=== PATIENT | male | born 1950 | race Caucasian/White ===

== ENCOUNTER → 2024-04-04 15:09 | Outpatient (REF) | payer OTHER, SELFPAY | LOC: DHSLP 15:09 | PROVIDERS: ATTENDING PHYSICIAN Internal Medicine Cardiovascular Disease; FAMILY PHYSICIAN Family Medicine | DX: G47.33 Obstructive sleep apnea (adult) (pediatric) (principal) | CPT/HCPCS: 95800 ==

== ENCOUNTER → 2024-05-16 09:00 | Day surgery (SDC) | payer OTHER, SELFPAY ==
[2024-05-16 10:14] VITALS: BMI 33.9
[2024-05-16 10:46] LABS: % Basophils 0.9 % (0-2); % Eosinophils 3.1 % (0-6); % Immature Granulocytes 0.5 % (0-0.5); % Lymphocytes 48.2 % (20.5-51.1); % Monocytes 8.9 % (1.7-9.3); % Neutrophils 38.4 % (42.2-75.2); Absolute Basophils 0.1 10^3/uL (0-0.2); Absolute Eosinophils 0.2 10^3/uL (0-0.7); Absolute Lymphocytes 3.2 10^3/uL (1.2-3.4); Absolute Monocytes 0.6 10^3/uL (0.1-0.6); Absolute Neutrophils 2.5 10^3/uL (1.4-6.5); Hematocrit 37.3 % (39.0-52.0); Hemoglobin 12.7 g/dL (13.0-18.0); Mean Corpuscular Hgb 34.5 pg (27.0-31.0); Mean Corpuscular Volume 101.4 fL (80.0-94.0); Mean Platelet Volume 10.5 fL (7.4-10.4); Nucleated Red Blood Cells % 0 % (-); Platelet Count 184 10^3/uL (130-400); Red Blood Cell Count 3.68 10^6/uL (4.70-6.10); Red Cell Dist. Width 12.3 % (11.5-14.5); White Blood Cell Count 6.6 10^3/uL (4.8-10.8)
[2024-05-16 11:00] LABS: INR 1.09; PT 14.7 Sec (11.4-14.6)
[2024-05-16 11:02] LABS: ALT (SGPT) 21 U/L (0-50); AST (SGOT) 24 U/L (17-59); Albumin 4.7 g/dl (3.5-5.0); Alkaline Phosphatase 61 U/L (38-126); Blood Urea Nitrogen 24 mg/dl (9-20); Calcium 9.4 mg/dl (8.4-10.2); Carbon Dioxide 31 mmol/L (22-30); Chloride 103 mmol/L (98-107); Estimated Creatinine Clearance 70 ml/min; Glucose 94 mg/dl (70-99); Magnesium 2.1 mg/dl (1.6-2.3); Potassium 4.5 mmol/L (3.5-5.1); Sodium 141 mmol/L (135-145); Total Bilirubin 0.4 mg/dl (0.2-1.3); Total Protein 6.6 g/dl (6.3-8.2); eGFR > 60.00
--- NOTE | 2024-05-17 08:51 | W.PN.UPDATE ---
Update Note
Progress Note Update
Chest CT incidental findings:
1. Single, individual left and right superior and inferior pulmonary veins.
2. 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 No significant internal complexity that would be highly suggestive of a liposarcoma. Recommend direct comparison with previous outside imaging of the chest if
available.
3. 2.2 cm spiculated pulmonary nodule in the anterior right upper lobe. Recommend a follow-up PET/CT versus soft tissue sampling.
-faxed to Dr. Alfa Castelan and spoke to nurse Degroot who left message as well.
-spoke to .
== END ==
LOC: SDSPAT 09:00
PROVIDERS: ATTENDING PHYSICIAN Internal Medicine Cardiovascular Disease; FAMILY PHYSICIAN Family Medicine; OTHER PHYSICIAN Internal Medicine Cardiovascular Disease
DX: Z01.810 Encounter for preprocedural cardiovascular examination (principal); Z01.812 Encounter for preprocedural laboratory examination; Z01.818 Encounter for other preprocedural examination; I48.0 Paroxysmal atrial fibrillation; I10 Essential (primary) hypertension; E78.5 Hyperlipidemia, unspecified; K21.9 Gastro-esophageal reflux disease without esophagitis; E66.9 Obesity, unspecified; Z68.33 Body mass index [BMI] 33.0-33.9, adult; R91.1 Solitary pulmonary nodule; Z87.891 Personal history of nicotine dependence; G47.33 Obstructive sleep apnea (adult) (pediatric)
CPT/HCPCS: 93005; 36415; 75572; 80053; 83735; 85025; 85610; 86850; 86900; 86901; Q9967

== ENCOUNTER 2024-10-17 06:53 | Day surgery (SDC) | payer OTHER, SELFPAY ==
[2024-10-17] VITALS (12 sets, daily range): BP systolic 155–217; BP diastolic 71–104
[2024-10-17 08:15] LABS: Blood Urea Nitrogen 20 mg/dl (9-20); Calcium 9.6 mg/dl (8.4-10.2); Carbon Dioxide 27 mmol/L (22-30); Chloride 109 mmol/L (98-107); Estimated Creatinine Clearance 80 ml/min; Glucose 94 mg/dl (70-99); Potassium 4.8 mmol/L (3.5-5.1); Sodium 143 mmol/L (135-145); eGFR > 60.00
[2024-10-17 08:32] LABS: Hemoglobin 12.5 g/dL (13.0-18.0); Mean Corp Hgb Conc. 33.8 g/dL (33.0-37.0); Mean Corpuscular Hgb 32.8 pg (27.0-31.0); Mean Corpuscular Volume 97.1 fL (80.0-94.0); Platelet Count 181 10^3/uL (130-400); Red Blood Cell Count 3.81 10^6/uL (4.70-6.10); White Blood Cell Count 5.2 10^3/uL (4.8-10.8)
[2024-10-17] MEDS: TYLENOL 1000 MG PO (10:18)
--- NOTE | 2024-10-17 10:46 | ITS.CL.ABL ---
Therapist Radiation - Ablation
Ablation
Procedure Report:
Primary Brake Operator Helper: Ye Penaloza MD
Procedure Date: 10/17/2024
Patient History:
Patient is a pleasant 74-year-old male with a past medical history significant for hypertension, smoking, dyslipidemia, symptomatic paroxysmal atrial fibrillation, right lung mass status post resection..
See H&P for complete details.
Indication:
Symptomatic paroxysmal atrial fibrillation
Arrhythmia Specific History:
Prior Medical Therapies for Rate and Rhythm Control:
X Beta-opal
[ ] Calcium channel-opal
X Amiodarone
[ ] Dronederone
[ ] Sotalol
[ ] Flecainide
[ ] Dofetilide
[ ] Options limited by bradycardia
[ ] Options limited by comorbid renal disease
Prior Procedural Therapies for AF/AFL:
[ ] Cardioversion
[ ] Pulmonary Vein Isolation
[ ] Posterior Wall Isolation
[ ] Additional lines (Specify)
[ ] Surgical Mcallister-MAZE or PVI (Specify)
Procedure Performed:
X AF ablation procedure (70080) -- includes LA/CS pacing, trans-septal, 3D mapping, + ICE
[ ] +IV drug (70538)
[ ] +Other Arrhythmia (87539)
X +Other AF Line/ablation (63061) - Posterior wall isolation (floor roof wall)
Risks and expected recovery has been explained in detail. Alternative options have been explored, and in a shared-decision making fashion we have decided that this was the most appropriate procedure.
Method
NPO status confirmed. Grounding pad applied. Defibrillator pads applied. Continuous surface ECG, pulse oximetry, and blood pressure were monitored. Procedure was performed under general anesthesia, with anesthesia services.
Both groins were clipped, prepped with Chloraprep, and draped in sterile fashion. Time out was called. Local anesthesia administered with bupivacaine. The right femoral vein was accessed for catheter placement, using ultrasound guidance (images
saved to record), micro-puncture needle/wire, and modified seldinger technique. 3 sheaths were placed. The following catheters were used:
[ ] Tacticath SE (D/F Curve) ablation catheter
X Viewflex 9Fr ICE catheter
X Inquiry decapolar 6Fr diagnostic catheter
[ ] CRD Hex 6Fr
[ ] Arctic Front Advance Cryoballoon ([ ]28mm[ ]23mm)
[ ] Achieve Advance mapping catheter ([ ]15mm[ ]20mm)
X FlexCath Contour 10 Fr with PulseSelect PFA Catheter
X Advisor HD Grid Mapping Catheter, SE
[ ] AcusPolarizonics AcuNav 8 Fr ICE catheter
[ ]Other: [ ]
Intracardiac ultrasound (ICE) was carefully advanced into the right atrium to guide sheath placement over a J-wire, catheter placement, guide trans-septal puncture, identify potential complications, identify anatomic structures and ensure proper
contact between ablation catheter and tissue. A trace pericardial effusion versus prominent pericardial fat was noted around the left ventricle at the base and initiation of procedure. This remained unchanged during and at case completion.
Heparin was given prior to trans-septal puncture. Heparin was given to achieve and maintain a target ACT of 300-400 seconds throughout the procedure.
Trans-septal access was performed under ICE guidance. The trans-septal puncture was performed with a SafeSept wire through a Brockenbrough needle assembly through the steerable sheath. The wire was visualized as it entered the LSPV and system
advanced under ICE guidance and fluoroscopy into the LA. The Brockenbrough needle assembly, SafeSept wire and sheath dilator were removed under negative pressure. LA pressure was measured and recorded.
ICE and 3D mapping was performed to identify relevant cardiac structures. A careful 3D map was created to assess for regions of low-voltage and abnormal electrogram signals using HD grid mapping catheter and PulseSelect catheter. Additional mapping
was performed as outlined below.
Prior to ablation, glycopyrrolate was provided. PulseSelect catheter was advanced over J-wire to the ostium of each vein. Pulmonary vein isolation was performed with ostial and antral lesions in a circumferential manner. Contact was visualized via
EAM, ICE, fluoroscopy, and EGM signals. Posterior wall isolation was performed by anchoring the J-wire within the pulmonary vein and placing the PulseSelect catheter in contact with the posterior wall as visualized by aforementioned methods.
Following completion of ablation lesions, a post-ablation voltage/activation map was performed in sinus rhythm. Entrance and exit block were confirmed for each vein and the posterior wall.
Catheter and sheath were removed from the left atrium and post-ablation intracardiac echo evaluation was consistent with pre-ablation with no changes and no pericardial effusion and there is no left atrial thrombus or left ventricle thrombus seen.
Electrophysiology study was performed. Hemostasis was obtained with Vascade for each sheath and with manual pressure. Protamine was used for reversal.
Estimated Blood Loss
5 mL
Complications
None
Fluoroscopy: 2.9 minutes; 10.44 mGy; DAP 2.01
LA Pressure: Pre 9 mmHg, post 10 mmHg
Baseline Intervals:
Rhythm: SR
TX: 127 ms
QRS: 90 ms
QT: 393 ms
QTc: 435 ms
Post-Procedure Intervals:
TX: 155 ms
QRS: 95 ms
QT: 414 ms
QTc: 420 ms
AVWB: 390 ms
AERP/AVENRP: 600/290 ms
Recommendations
- Bedrest with straight-leg precautions as ordered
- Anticipate same day discharge if patient meeting clinical metrics
- Resume home medications as indicated
- Ok to resume anticoagulation tonight if patient and groin sites stable
- PPI daily for 30 days
- Plan for follow-up in office as scheduled
- Continue amiodarone for now, plan to DC at 3 mo post procedure
Fish Brown DO, FACC, RS
Clinical Cardiac Thermometer Maker
cc: Dr Ye Penaloza; Dr Alfa Castelan
[2024-10-17 12:07] LABS: ACT-LR - POC 268 Seconds (116-155)
[2024-10-17 12:24] LABS: ACT-LR - POC 337 Seconds (116-155)
[2024-10-17 12:52] LABS: ACT-LR - POC 322 Seconds (116-155)
[2024-10-17 13:23] LABS: ACT-LR - POC 210 Seconds (116-155)
[2024-10-17] MEDS: SUBLIMAZE 50 MCG IV (14:17)
[2024-10-17] MEDS: ROXICODONE 10 MG PO (14:30)
[2024-10-17] MEDS: NEURONTIN 200 MG PO (14:31)
[2024-10-17] MEDS: TOPROL XL 50 MG PO (14:32)
[2024-10-17] MEDS: ZESTRIL 40 MG PO (14:32)
--- NOTE | 2024-10-17 16:55 | W.PN.UPDATE ---
Update Note
Progress Note Update
74 yo WM s/p PVI (same day). He denies cp, sob, pierre diet, voiding, amb w/o dizziness, EKG SR, R fem site VASCADE c/d/i no HT, soft. His BP has been running high even at home despite uptitration of home BP meds. He will stop metoprolol xl 50mg bid
and switch to carvedilol 12.5mg bid and continue to monitor BP with office check in 2 weeks. He will resume Eliquis tonight and we will add PPI for 30 days. He will continue amiodarone for 3 months then stop. Activity restrictions reviewed. He will
f/u Dr. Penaloza in 3 mo. He is for d/c home after 5pm.
== END 2024-10-17 17:23 | disposition home or self-care (01) ==
LOC: CATH 06:53
PROVIDERS: ATTENDING PHYSICIAN Internal Medicine Cardiovascular Disease; FAMILY PHYSICIAN Family Medicine; OTHER PHYSICIAN Internal Medicine Cardiovascular Disease
DX: I48.0 Paroxysmal atrial fibrillation (principal); I08.1 Rheumatic disorders of both mitral and tricuspid valves; I10 Essential (primary) hypertension; E78.5 Hyperlipidemia, unspecified; G47.33 Obstructive sleep apnea (adult) (pediatric); Z87.891 Personal history of nicotine dependence; Z79.01 Long term (current) use of anticoagulants
CPT/HCPCS: 93312; 93320; 93325; C1732; C1894; C1730; C1769; C1733; C1766; 80048; 85027; 85347; 86850; 86900; 86901; 93005; 93656; 93657; C1760